=== PATIENT | male | born 1970 | race Two or more races ===

== ENCOUNTER 2017-05-17 23:41 | Emergency (ER) | payer SELFPAY ==
[~2017-05-17] VITALS: Ht 152.4 cm; Wt 72.6 kg
[2017-05-18] MEDS ORDERED: IV D5/ 0.9% NACL 1,000 ML IV ONE (00:16)
[2017-05-18 00:42] LABS: BASOPHILS % (AUTO) 0.2 % (0.0-2.0); EOSINOPHILS % (AUTO) 0.1 % (0.0-6.0); HEMATOCRIT 48 % (39-51); HEMOGLOBIN 16.5 g/dL (13.5-17.5); LYMPHOCYTES # (AUTO) 1.3 /CMM (0.8-4.8); LYMPHOCYTES % (AUTO) 10.4 % (20.0-44.0); MEAN CORPUSCULAR HEMOGLOBIN 32 PG (26.0-33.0); MEAN CORPUSCULAR HGB CONC 35 g/dl (31.0-36.0); MEAN CORPUSCULAR VOLUME 93 fL (80-96); MONOCYTES # (AUTO) 0.5 /CMM (0.1-1.30); MONOCYTES % (AUTO) 3.9 % (2.0-12.0); NEUTROPHILS # (AUTO) 10.3 /CMM (1.8-8.9); NEUTROPHILS % (AUTO) 85.4 % (43.0-81.0); PLATELET COUNT (AUTO) 333 /CMM (150-450); RDW COEFFICIENT OF VARIATION 12.6 (11.5-15.0); RED BLOOD CELL COUNT(AUTO) 5.13 MIL/uL (4.5-6.0)
--- NOTE | 2017-05-18 00:48 | NUR ---
PT PRESENTED TO THE ER WITH A C/O ETOH, "FOUND DOWN ON A SIDEWALK", ABRASIONS NOTED ON FACE (RT EYE, LIP). PT IS SLIGHTLY AGGRESSIVE UPON ARRIVAL. PT PLACED IN BED #14 AND CONNECTED TO THE MONITOR.
[2017-05-18 00:52] LABS: CALCIUM, SERUM 7.8 mg/dL (8.5-10.1); POTASSIUM 3.4 mmol/L (3.5-5.1)
--- NOTE | 2017-05-18 00:52 | NUR ---
PT PLACED IN C-COLLAR
--- NOTE | 2017-05-18 00:53 | NUR ---
PT LEFT FOR CT VIA GURNEY.
[2017-05-18 01:00] LABS: ALBUMIN 3.7 g/dL (3.4-5.0); BILIRUBIN,DIRECT 0.1 mg/dL (0.0-0.2); BILIRUBIN,TOTAL 0.3 mg/dL (0.2-1.0); TOTAL PROTEIN, SERUM 6.6 g/dL (6.4-8.2)
[2017-05-18 01:01] LABS: SALICYLATE 1.2 mg/dL (2.8-20.0)
--- NOTE | 2017-05-18 01:11 | NUR ---
PT RETURNED FROM CT.
--- NOTE | 2017-05-18 01:23 | NUR ---
PT'S C-COLLAR WAS COVERING PT'S MOUTH. C-COLLAR ADJUSTED AND PT GIVEN 2L O2 VIA NC PRECAUTION. PT DESATURATED TO 88% ON RA WHILE SLEEPING. VSS.
--- NOTE | 2017-05-18 02:13 | NUR ---
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
--- NOTE | 2017-05-18 02:29 | NUR ---
pt appears asleep, easily arousable, no acute distress noted, resp even and unlabored. call light within reach. will continue to monitor pt closely.
--- NOTE | 2017-05-18 03:32 | NUR ---
pt appears asleep, easily arousable, no acute distress noted, resp even and unlabored. call light within reach. will continue to monitor pt closely.
--- NOTE | 2017-05-18 05:45 | NUR ---
IV removed. Catheter intact and site benign. Pressure and 4x4 applied to site. No bleeding noted. Patient discharged to home in stable condition. Written and verbal after care instructions given. Patient verbalizes understanding of instruction. ambulatory with a steady gait noted. pt [id number] no acute distress noted, resp even and unlabored. advice pt not to drive or operate any machinery due to pt verbalize understanding.
[2017-05-18 05:48] VITALS: BP 127/63
== END 2017-05-18 05:49 | disposition home or self-care (01) ==
LOC: ER 23:43
DX: S00.83XA Contusion of other part of head, initial encounter (principal); S00.511A Abrasion of lip, initial encounter; S09.8XXA Other specified injuries of head, initial encounter; F10.129 Alcohol abuse with intoxication, unspecified; X58.XXXA Exposure to other specified factors, initial encounter; Y93.89 Activity, other specified; Y92.480 Sidewalk as the place of occurrence of the external cause; Y99.8 Other external cause status
CPT/HCPCS: 36415; 70450-TC; 72125-TC; 80048-TC; 80076-TC; 83690-TC; 85025-TC; A4606; G0480; J7042; L0172; Z7610